=== PATIENT | female | born 1960 | race Hispanic/Latino ===

== ENCOUNTER 2017-10-26 11:39 | Outpatient (CLI) | payer SELFPAY ==
--- NOTE | 2017-10-27 16:02 | MMO ---
BILATERAL MAMMOGRAMS: 10/26/17 HISTORY: Screening mammography. COMPARISON: Multiple exams back to 09/01/12. FINDINGS: Heterogeneously dense fibroglandular tissue and benign appearing calcification are again demonstrated . No dominant mass or suspicious calcifications. The study is evaluated with the assistance of comput er aided detection. IMPRESSION: BI-RADS 1: Negative Routine annual screening mammography (for women over age 40) POS: JUAN MANUEL
== END 2017-10-26 11:40 | disposition home or self-care (01) ==
LOC: SCSMAMMO 11:39
PROVIDERS: ATTEND Nurse Practitioner Family
DX: Z12.31 Encounter for screening mammogram for malignant neoplasm of breast (principal)
CPT/HCPCS: 77067

== ENCOUNTER 2023-02-26 11:17 | Inpatient (IN) | payer OTHER ==
[~2023-02-26 11:17] MED LIST: Iopamidol-370 76% 500 ML MDV (1 ML CHARGE) ONE
[2023-02-26] MEDS ORDERED: fentaNYL 50 mcg/mL 1 mL Vial ONE ×6 (11:30→16:55)
[2023-02-26] MEDS ORDERED: Ondansetron PF 4 MG/2 ML Vial ONE ×2 (11:30→14:00)
[2023-02-26 11:33] LABS: #Eosinphils 0.2 thou/uL (0.0-0.7); #Monocytes 0.5 thou/uL (0.11-0.59); #Neutrophils 9.5 thou/uL (1.40-6.50); %Basophils 0.1 % (0.0-1.0); %Eosinophils 1.1 % (0.0-10.0); %Lymphocytes 26.5 % (21.0-51.0); %Monocytes 3.4 % (0.0-10.0); %Neutrophils 68.3 % (42.0-75.0); Hematocrit 31.8 % (36.0-47.0); Hemoglobin 9.9 g/dL (12.0-16.0); Mean Corpuscular HGB CONC 31.1 g/dL (32.0-36.0); Mean Corpuscular Hemoglobin 28.3 pg (27.0-31.0); Mean Corpuscular Volume 90.9 fl (78.0-98.0); Mean Platelet Volume 12.1 fL (7.4-10.4); Platelet Count 160 10x3/uL (130-400); RBC Distribution Width 14.6 % (11.5-14.5); White Blood Cell (WBC) Count 13.9 10x3/uL (4.8-10.8)
[2023-02-26] MEDS ORDERED: [UNRECOGNIZED DRUG - OTHER] IV SCH (11:45)
[2023-02-26] MEDS ORDERED: HUMAN PROTHROMBIN COMPLX IV SCH (11:45)
[2023-02-26] MEDS ORDERED: HUM PROTHROMBIN CPLX IV SCH (11:45)
[2023-02-26] MEDS ORDERED: HumaLOG 300 UNITS/3 ML VIAL SC PRN (11:46)
[2023-02-26] MEDS ORDERED: Dextrose 5% in Water 1,000 ML IV PRN (11:46)
[2023-02-26] MEDS ORDERED: TETANUS, DIPHTHERIA TOX,ADULT (TDVAX) 0.5 ML VIAL IM ONE (11:46)
[2023-02-26] MEDS ORDERED: Ipratropium/Albuterol 3 ML NEB NEB PRN (11:46)
[2023-02-26] MEDS ORDERED: Dextrose 50% Abboject 50 ML SYRINGE SLOW IVP PRN (11:46)
[2023-02-26] MEDS ORDERED: Glucagon 1 MG/ML KIT IM PRN (11:46)
[2023-02-26 11:51] LABS: ALT (SGPT) 16 U/L (8-55); AST (SGOT) 28 U/L (5-34); Alkaline Phosphatase 68 U/L (40-110); Anion Gap 16 mmol/L (10-20); BUN (Urea Nitrogen) 16 mg/dL (9.8-20.1); Bilirubin, Total 0.5 mg/dL (0.2-1.2); Calc. Creatinine Clearance 0 mL/min (70-130); Calcium 9.2 mg/dL (7.8-10.44); Carbon Dioxide 20 mmol/L (23-31); Chloride 104 mmol/L (98-107); Estimated GFR 79; Globulin 3.4 g/dL (2.4-3.5); Glucose 247 mg/dL (80-115); Lipase 45 U/L (8-78); Potassium 4.1 mmol/L (3.5-5.1); Protein, Total 7.4 g/dL (5.8-8.1); Sodium 136 mmol/L (136-145)
[2023-02-26 11:56] LABS: PTT 30.3 sec (22.9-36.1); Prothrombin Time 23.9 sec (12.0-14.7)
[2023-02-26 12:00] LABS: Acetaminophen Less than 10 mcg/mL (10.0-30.0); Alcohol Less than 10.0 mg/dL (Less than 10); Salicylate Less than 8.0 mg/dL (15.0-30.0)
[2023-02-26] MEDS ORDERED: Acetaminophen 500 MG TAB PO SCH (12:15)
[2023-02-26 13:06] LABS: Troponin I Less than 0.010 ng/mL (< 0.028)
[2023-02-26] MEDS ORDERED: fentaNYL PF 100 MCG/2 ML SYRINGE ONE (13:41)
[2023-02-26] MEDS ORDERED: CEFAZOLIN 2 GM in Sodium Chloride 0.9% 100 ML IVPB SCH (13:45)
[2023-02-26] MEDS ORDERED: Lidocaine 1% PF 5 ML VIAL ONE (14:00)
[2023-02-26] MEDS ORDERED: diphenhydrAMINE 50 MG/ML VIAL ONE (14:00)
[2023-02-26] MEDS ORDERED: Rocuronium Bromide 10 MG/ML (10ML VIAL) ONE (14:00)
[2023-02-26] MEDS ORDERED: Glycopyrrolate 0.2 MG/ML 5 ML SYRINGE ONE (14:00)
[2023-02-26] MEDS ORDERED: NEOSTIGMINE 3 MG/3 ML SYR 3 MG/3 ML SYRINGE ONE (14:00)
[2023-02-26] MEDS ORDERED: Succinylcholine 200 MG/10 ml SYRINGE FS ONE (14:00)
[2023-02-26] MEDS ORDERED: PROPOFOL 200 MG/20 ML VIAL ONE (14:00)
[2023-02-26 14:07] LABS: Bacteria/HPF None Seen HPF (None Seen); Bilirubin Negative (Negative); Blood, Urine Negative (Negative); CAUTI Indications for Culture Dysuria,urgency,freq; Clarity Clear (Clear); Glucose, Urine (Dipstick) Normal (Negative); Ketone, Urine Negative (Negative); Leukocyte Negative Leu/uL (Negative); Nitrite Negative (Negative); Protein, Urine (Dipstick) Negative (Neg-Trace); RBC/HPF 0-3 HPF (0-3); Specific Gravity, Urine 1.034 (1.002-1.036); Squamous Epithelial 0-3 HPF (0-3); Urobilinogen Normal mg/dL (Less than 2); WBC/HPF 0-3 HPF (0-3); pH, Urine 6.5 (5.0-9.0)
[2023-02-26 14:09] LABS: Urine Culture Reflex No No
[2023-02-26 14:15] LABS: Amphetamine Not Detected (NotDetected); Barbiturates Screen Not Detected (NotDetected); Benzodiazepine Screen Not Detected (NotDetected); Cocaine Metabolite Screen Not Detected (NotDetected); Methadone Not Detected (NotDetected); Methamphetamine Not Detected (NotDetected); Opiate Screen Not Detected (NotDetected); Oxycodone Screen Not Detected (NotDetected); Phencyclidine (PCP) Not Detected (NotDetected); THC/Cannabinoid Screen Not Detected (NotDetected); Tricyclic Screen Not Detected (NotDetected)
[2023-02-26] MEDS ORDERED: Ketorolac Tromethamine 30 MG/ML VIAL ONE (16:15)
[2023-02-26] MEDS ORDERED: Metoprolol Tartrate 5 MG/5 ML VIAL ONE (16:32)
[2023-02-26] MEDS: Morphine 2 MG/ML VIAL SLOW IVP PRN ×2 (17:57→18:39)
[2023-02-26] MEDS: Ondansetron PF 4 MG/2 ML Vial IVP PRN (18:00)
[2023-02-26] MEDS: Cyclobenzaprine 10 MG TAB PO PRN (18:02)
[2023-02-26] MEDS: Sodium Chloride 0.9% 1,000 ML IV SCH ×2 (18:07→20:51)
[2023-02-26] MEDS: Acetaminophen 500 MG TAB PO SCH (18:09)
[2023-02-26 19:59] VITALS: BMI 31.4
[2023-02-26] MEDS: Famotidine/PF 20 mg/2ml Vial SLOW IVP SCH (20:35)
[2023-02-26] MEDS: Morphine 4 MG/ML VIAL SLOW IVP PRN (20:35)
[2023-02-26] MEDS: Pregabalin 50 MG CAP PO SCH (21:38)
[2023-02-26] MEDS: CEFAZOLIN 2 GM in Sodium Chloride 0.9% 100 ML IVPB SCH (21:40)
[2023-02-26 21:56] LABS: #Monocytes 0.4 thou/uL (0.11-0.59); #Neutrophils 5.5 thou/uL (1.40-6.50); %Basophils 0.2 % (0.0-1.0); %Lymphocytes 9.7 % (21.0-51.0); %Monocytes 5.9 % (0.0-10.0); %Neutrophils 83.9 % (42.0-75.0); Hemoglobin 8.3 g/dL (12.0-16.0); Mean Corpuscular HGB CONC 31.9 g/dL (32.0-36.0); Mean Corpuscular Hemoglobin 28.9 pg (27.0-31.0); Mean Corpuscular Volume 90.6 fl (78.0-98.0); Mean Platelet Volume 12.5 fL (7.4-10.4); RBC Distribution Width 14.5 % (11.5-14.5); Red Blood Cell (RBC) Count 2.87 mill/uL (4.20-5.40); White Blood Cell (WBC) Count 6.6 10x3/uL (4.8-10.8)
[2023-02-26 21:59] LABS: Platelet Count 103 10x3/uL (130-400)
[2023-02-26 22:11] LABS: Lactic Acid 2.1 mmol/L (0.5-2.2)
[2023-02-27] MEDS: Morphine 2 MG/ML VIAL SLOW IVP PRN ×2 (00:02→21:16)
[2023-02-27] MEDS: Acetaminophen 500 MG TAB PO SCH ×5 (00:03→23:43)
[2023-02-27] MEDS: Morphine 4 MG/ML VIAL SLOW IVP PRN ×2 (03:18→07:18)
[2023-02-27] MEDS: Sodium Chloride 0.9% 1,000 ML IV SCH (03:19)
[2023-02-27 07:04] LABS: #Eosinphils 0.2 thou/uL (0.0-0.7); #Monocytes 0.4 thou/uL (0.11-0.59); #Neutrophils 3.5 thou/uL (1.40-6.50); %Basophils 0.2 % (0.0-1.0); %Eosinophils 2.8 % (0.0-10.0); %Lymphocytes 22.3 % (21.0-51.0); %Monocytes 7.9 % (0.0-10.0); %Neutrophils 66.6 % (42.0-75.0); Hematocrit 23.1 % (36.0-47.0); Hemoglobin 7.5 g/dL (12.0-16.0); Mean Corpuscular HGB CONC 32.5 g/dL (32.0-36.0); Mean Corpuscular Hemoglobin 29.2 pg (27.0-31.0); Mean Corpuscular Volume 89.9 fl (78.0-98.0); Mean Platelet Volume 12.7 fL (7.4-10.4); RBC Distribution Width 14.9 % (11.5-14.5); Red Blood Cell (RBC) Count 2.57 mill/uL (4.20-5.40); White Blood Cell (WBC) Count 5.3 10x3/uL (4.8-10.8)
[2023-02-27] MEDS: CEFAZOLIN 2 GM in Sodium Chloride 0.9% 100 ML IVPB SCH ×3 (07:18→21:17)
[2023-02-27 07:28] LABS: Platelet Count 85 10x3/uL (130-400)
[2023-02-27 07:30] LABS: Anion Gap 10 mmol/L (10-20); BUN (Urea Nitrogen) 15 mg/dL (9.8-20.1); Calc. Creatinine Clearance 106 mL/min (70-130); Calcium 7.8 mg/dL (7.8-10.44); Carbon Dioxide 22 mmol/L (23-31); Chloride 109 mmol/L (98-107); Estimated GFR 101; Glucose 115 mg/dL (80-115); Potassium 3.8 mmol/L (3.5-5.1); Sodium 137 mmol/L (136-145)
[2023-02-27] MEDS ORDERED: Lidocaine 1% (PF) 30 ML VIAL ONE (07:31)
[2023-02-27] MEDS: Ondansetron PF 4 MG/2 ML Vial IVP PRN (08:00)
[2023-02-27] MEDS ORDERED: traMADol HCl 50 MG TAB PO PRN (08:23)
[2023-02-27 08:27] LABS: CellaVision Operator ID lab.dlt; Hypochromia SLIGHT = 6-15 cells HPF (0-5); Large Platelets 7.9 % (0-5); Platelet Adequacy Comment Platelets Decreased; Polychromasia SLIGHT = 2-3 cells HPF (0-2)
[2023-02-27] MEDS ORDERED: Lidocaine 1% (PF) 30 ML VIAL SC SCH (09:15)
[2023-02-27] MEDS ORDERED: Morphine 4 MG/ML VIAL SLOW IVP SCH (09:15)
[2023-02-27] MEDS: Ascorbic Acid 500 mg Chewable Tablet PO SCH ×2 (10:03→20:25)
[2023-02-27] MEDS: Polyethylene Glycol 3350 17 GM Packet PO SCH (10:03)
[2023-02-27] MEDS: Senokot S 8.6-50 MG TAB PO SCH ×2 (10:03→20:25)
[2023-02-27] MEDS: Famotidine/PF 20 mg/2ml Vial SLOW IVP SCH ×2 (10:03→20:25)
[2023-02-27] MEDS: Pregabalin 50 MG CAP PO SCH ×2 (10:16→20:25)
[2023-02-27] MEDS: Cyclobenzaprine 10 MG TAB PO PRN ×3 (12:47→21:17)
[2023-02-27] MEDS: traMADol HCl 50 MG TAB PO SCH ×3 (12:51→23:44)
[2023-02-27] MEDS: Ferrous Sulfate 325 MG TAB PO SCH (17:57)
[2023-02-28 03:59] LABS: #Eosinphils 0.5 thou/uL (0.0-0.7); #Monocytes 0.5 thou/uL (0.11-0.59); #Neutrophils 4.2 thou/uL (1.40-6.50); %Basophils 0.2 % (0.0-1.0); %Eosinophils 7.3 % (0.0-10.0); %Lymphocytes 15.1 % (21.0-51.0); %Neutrophils 68.9 % (42.0-75.0); Hematocrit 23.8 % (36.0-47.0); Hemoglobin 7.6 g/dL (12.0-16.0); Mean Corpuscular HGB CONC 31.9 g/dL (32.0-36.0); Mean Corpuscular Hemoglobin 28.6 pg (27.0-31.0); Mean Corpuscular Volume 89.5 fl (78.0-98.0); Mean Platelet Volume 12.9 fL (7.4-10.4); RBC Distribution Width 14.8 % (11.5-14.5); Red Blood Cell (RBC) Count 2.66 mill/uL (4.20-5.40); White Blood Cell (WBC) Count 6.2 10x3/uL (4.8-10.8)
[2023-02-28 04:01] LABS: Platelet Count 76 10x3/uL (130-400)
[2023-02-28] MEDS: Acetaminophen 500 MG TAB PO SCH ×4 (05:19→23:31)
[2023-02-28] MEDS: CEFAZOLIN 2 GM in Sodium Chloride 0.9% 100 ML IVPB SCH ×3 (05:19→21:04)
[2023-02-28] MEDS: traMADol HCl 50 MG TAB PO SCH ×4 (05:20→23:31)
[2023-02-28] MEDS: Morphine 2 MG/ML VIAL SLOW IVP PRN (07:30)
[2023-02-28] MEDS: Cyclobenzaprine 10 MG TAB PO PRN (09:53)
[2023-02-28] MEDS: Senokot S 8.6-50 MG TAB PO SCH ×2 (09:53→21:04)
[2023-02-28] MEDS: Polyethylene Glycol 3350 17 GM Packet PO SCH (09:54)
[2023-02-28] MEDS: Metoprolol Tartrate 25 MG TAB PO SCH ×3 (09:54→22:01)
[2023-02-28] MEDS: Famotidine 20 MG TAB PO SCH ×2 (09:54→21:04)
[2023-02-28] MEDS: Ferrous Sulfate 325 MG TAB PO SCH ×2 (09:54→17:45)
[2023-02-28] MEDS: Ascorbic Acid 500 mg Chewable Tablet PO SCH ×2 (09:54→17:55)
[2023-02-28] MEDS: Pregabalin 50 MG CAP PO SCH ×2 (09:56→21:04)
[2023-02-28] MEDS ORDERED: Morphine 2 MG/ML VIAL SLOW IVP PRN (10:45)
[2023-02-28] MEDS: Ketorolac Tromethamine 30 MG/ML VIAL IVP SCH ×3 (11:09→22:58)
[2023-02-28] MEDS ORDERED: WARFARIN IVPB PRN (12:15)
[2023-02-28] MEDS ORDERED: Warfarin Sodium 5 MG TAB PO SCH (17:00)
[2023-02-28] MEDS: Atorvastatin Calcium 10 MG TAB PO SCH (21:04)
[2023-03-01] MEDS: Ketorolac Tromethamine 30 MG/ML VIAL IVP SCH ×2 (04:18→10:04)
[2023-03-01] MEDS: traMADol HCl 50 MG TAB PO SCH ×4 (06:11→23:50)
[2023-03-01] MEDS: Acetaminophen 500 MG TAB PO SCH ×4 (06:11→23:50)
[2023-03-01 08:30] LABS: #Eosinphils 0.3 thou/uL (0.0-0.7); #Monocytes 0.3 thou/uL (0.11-0.59); #Neutrophils 2.6 thou/uL (1.40-6.50); %Basophils 0.3 % (0.0-1.0); %Eosinophils 6.9 % (0.0-10.0); %Lymphocytes 19.6 % (21.0-51.0); %Monocytes 7.4 % (0.0-10.0); %Neutrophils 65.5 % (42.0-75.0); Hematocrit 19.5 % (36.0-47.0); Hemoglobin 6.1 g/dL (12.0-16.0); Mean Corpuscular HGB CONC 31.3 g/dL (32.0-36.0); Mean Corpuscular Hemoglobin 28.6 pg (27.0-31.0); Mean Corpuscular Volume 91.5 fl (78.0-98.0); Mean Platelet Volume 11.2 fL (7.4-10.4); Platelet Count 96 10x3/uL (130-400); RBC Distribution Width 14.6 % (11.5-14.5); Red Blood Cell (RBC) Count 2.13 mill/uL (4.20-5.40); White Blood Cell (WBC) Count 3.9 10x3/uL (4.8-10.8)
[2023-03-01] MEDS: Ferrous Sulfate 325 MG TAB PO SCH ×2 (08:43→17:34)
[2023-03-01] MEDS: Ascorbic Acid 500 mg Chewable Tablet PO SCH ×2 (08:43→17:35)
[2023-03-01] MEDS: Senokot S 8.6-50 MG TAB PO SCH ×2 (08:44→20:42)
[2023-03-01] MEDS: Polyethylene Glycol 3350 17 GM Packet PO SCH (08:44)
[2023-03-01] MEDS: Pregabalin 50 MG CAP PO SCH ×2 (08:44→20:42)
[2023-03-01] MEDS: Famotidine 20 MG TAB PO SCH ×2 (08:44→20:42)
[2023-03-01] MEDS: Metoprolol Tartrate 25 MG TAB PO SCH ×2 (08:44→20:42)
[2023-03-01 08:48] LABS: INR-International Normal Ratio 2.2; Prothrombin Time 25.3 sec (12.0-14.7)
[2023-03-01] MEDS ORDERED: Warfarin Sodium 5 MG TAB PO SCH (15:00)
[2023-03-01 15:01] LABS: #Eosinphils 0.3 thou/uL (0.0-0.7); #Monocytes 0.2 thou/uL (0.11-0.59); #Neutrophils 2.5 thou/uL (1.40-6.50); %Basophils 0.3 % (0.0-1.0); %Eosinophils 6.7 % (0.0-10.0); %Lymphocytes 19.4 % (21.0-51.0); %Monocytes 6.5 % (0.0-10.0); %Neutrophils 66.8 % (42.0-75.0); Hematocrit 21.6 % (36.0-47.0); Hemoglobin 6.9 g/dL (12.0-16.0); Mean Corpuscular HGB CONC 31.9 g/dL (32.0-36.0); Mean Corpuscular Hemoglobin 28.4 pg (27.0-31.0); Mean Corpuscular Volume 88.9 fl (78.0-98.0); Platelet Count 99 10x3/uL (130-400); RBC Distribution Width 15.7 % (11.5-14.5); Red Blood Cell (RBC) Count 2.43 mill/uL (4.20-5.40); White Blood Cell (WBC) Count 3.7 10x3/uL (4.8-10.8)
[2023-03-01] MEDS: Atorvastatin Calcium 10 MG TAB PO SCH (20:42)
[2023-03-01] MEDS: Cyclobenzaprine 10 MG TAB PO PRN (20:42)
[2023-03-02] MEDS: traMADol HCl 50 MG TAB PO SCH ×4 (05:50→23:47)
[2023-03-02] MEDS: Acetaminophen 500 MG TAB PO SCH ×4 (05:50→23:47)
[2023-03-02 07:11] LABS: #Eosinphils 0.3 thou/uL (0.0-0.7); #Monocytes 0.3 thou/uL (0.11-0.59); #Neutrophils 2.6 thou/uL (1.40-6.50); %Basophils 0.3 % (0.0-1.0); %Eosinophils 6.7 % (0.0-10.0); %Lymphocytes 17.5 % (21.0-51.0); %Monocytes 7.7 % (0.0-10.0); %Neutrophils 67.5 % (42.0-75.0); Hematocrit 25.7 % (36.0-47.0); Hemoglobin 8.4 g/dL (12.0-16.0); Mean Corpuscular HGB CONC 32.7 g/dL (32.0-36.0); Mean Corpuscular Hemoglobin 28.8 pg (27.0-31.0); Mean Platelet Volume 11.3 fL (7.4-10.4); Platelet Count 108 10x3/uL (130-400); Red Blood Cell (RBC) Count 2.92 mill/uL (4.20-5.40); White Blood Cell (WBC) Count 3.9 10x3/uL (4.8-10.8)
[2023-03-02 07:21] LABS: Prothrombin Time 23.9 sec (12.0-14.7)
[2023-03-02] MEDS: Ferrous Sulfate 325 MG TAB PO SCH ×2 (09:32→18:36)
[2023-03-02] MEDS: Senokot S 8.6-50 MG TAB PO SCH ×2 (09:32→21:33)
[2023-03-02] MEDS: Metoprolol Tartrate 25 MG TAB PO SCH ×2 (09:32→21:33)
[2023-03-02] MEDS: Ascorbic Acid 500 mg Chewable Tablet PO SCH ×2 (09:33→18:36)
[2023-03-02] MEDS: Famotidine 20 MG TAB PO SCH ×2 (09:33→21:33)
[2023-03-02] MEDS: Polyethylene Glycol 3350 17 GM Packet PO SCH (09:34)
[2023-03-02] MEDS: Aspirin 325 mg Enteric Coated Tablet PO SCH (09:34)
[2023-03-02] MEDS: Pregabalin 50 MG CAP PO SCH ×2 (09:34→21:33)
[2023-03-02] MEDS: Warfarin Sodium 5 MG TAB PO SCH (18:37)
[2023-03-02] MEDS: Cyclobenzaprine 10 MG TAB PO PRN (21:33)
[2023-03-02] MEDS: Atorvastatin Calcium 10 MG TAB PO SCH (21:33)
[2023-03-03] MEDS: Acetaminophen 500 MG TAB PO SCH (05:29)
[2023-03-03] MEDS: traMADol HCl 50 MG TAB PO SCH ×3 (05:29→17:52)
[2023-03-03 07:13] LABS: #Eosinphils 0.3 thou/uL (0.0-0.7); #Monocytes 0.3 thou/uL (0.11-0.59); #Neutrophils 2.6 thou/uL (1.40-6.50); %Basophils 0.3 % (0.0-1.0); %Eosinophils 6.3 % (0.0-10.0); %Lymphocytes 19.5 % (21.0-51.0); %Monocytes 8.4 % (0.0-10.0); Hematocrit 26.2 % (36.0-47.0); Hemoglobin 8.6 g/dL (12.0-16.0); Mean Corpuscular HGB CONC 32.8 g/dL (32.0-36.0); Mean Corpuscular Hemoglobin 29.2 pg (27.0-31.0); Mean Corpuscular Volume 88.8 fl (78.0-98.0); Mean Platelet Volume 11.5 fL (7.4-10.4); Platelet Count 125 10x3/uL (130-400); Red Blood Cell (RBC) Count 2.95 mill/uL (4.20-5.40)
[2023-03-03 07:56] LABS: INR-International Normal Ratio 1.9; Prothrombin Time 22.6 sec (12.0-14.7)
[2023-03-03] MEDS: Metoprolol Tartrate 25 MG TAB PO SCH ×2 (07:58→21:28)
[2023-03-03] MEDS: Famotidine 20 MG TAB PO SCH ×2 (07:58→21:28)
[2023-03-03] MEDS: Aspirin 325 mg Enteric Coated Tablet PO SCH (07:58)
[2023-03-03] MEDS: Pregabalin 50 MG CAP PO SCH ×2 (07:58→21:26)
[2023-03-03] MEDS: Ascorbic Acid 500 mg Chewable Tablet PO SCH ×2 (07:59→17:51)
[2023-03-03] MEDS: Polyethylene Glycol 3350 17 GM Packet PO SCH (07:59)
[2023-03-03] MEDS: Senokot S 8.6-50 MG TAB PO SCH ×2 (07:59→21:28)
[2023-03-03] MEDS: Ferrous Sulfate 325 MG TAB PO SCH ×2 (07:59→17:51)
[2023-03-03] MEDS: Acetaminophen/Codeine 30-300mg Tablet PO SCH ×3 (11:33→21:27)
[2023-03-03] MEDS: Acetaminophen 325 MG TAB PO SCH ×2 (11:33→17:52)
[2023-03-03] MEDS: Warfarin Sodium 5 MG TAB PO SCH (17:51)
[2023-03-03] MEDS: Atorvastatin Calcium 10 MG TAB PO SCH (21:27)
[2023-03-04] MEDS: Acetaminophen 325 MG TAB PO SCH ×4 (00:06→18:32)
[2023-03-04] MEDS: traMADol HCl 50 MG TAB PO SCH ×4 (00:07→18:31)
[2023-03-04] MEDS: Acetaminophen/Codeine 30-300mg Tablet PO SCH ×4 (04:12→20:17)
[2023-03-04 06:18] LABS: #Eosinphils 0.2 thou/uL (0.0-0.7); #Monocytes 0.4 thou/uL (0.11-0.59); #Neutrophils 1.9 thou/uL (1.40-6.50); %Basophils 0.3 % (0.0-1.0); %Eosinophils 6.8 % (0.0-10.0); %Lymphocytes 26.7 % (21.0-51.0); %Monocytes 11.6 % (0.0-10.0); %Neutrophils 53.7 % (42.0-75.0); Hematocrit 25.9 % (36.0-47.0); Hemoglobin 8.3 g/dL (12.0-16.0); Mean Corpuscular Hemoglobin 28.3 pg (27.0-31.0); Mean Corpuscular Volume 88.4 fl (78.0-98.0); Mean Platelet Volume 11.2 fL (7.4-10.4); Platelet Count 130 10x3/uL (130-400); RBC Distribution Width 16.3 % (11.5-14.5); Red Blood Cell (RBC) Count 2.93 mill/uL (4.20-5.40); White Blood Cell (WBC) Count 3.5 10x3/uL (4.8-10.8)
[2023-03-04 06:30] LABS: Prothrombin Time 23.8 sec (12.0-14.7)
[2023-03-04] MEDS: Pregabalin 50 MG CAP PO SCH ×2 (08:53→20:16)
[2023-03-04] MEDS: Aspirin 325 mg Enteric Coated Tablet PO SCH (08:53)
[2023-03-04] MEDS: Famotidine 20 MG TAB PO SCH ×2 (08:53→20:15)
[2023-03-04] MEDS: Ferrous Sulfate 325 MG TAB PO SCH ×2 (08:54→16:38)
[2023-03-04] MEDS: Metoprolol Tartrate 25 MG TAB PO SCH ×2 (08:54→20:15)
[2023-03-04] MEDS: Ascorbic Acid 500 mg Chewable Tablet PO SCH ×2 (08:54→16:37)
[2023-03-04] MEDS: Senokot S 8.6-50 MG TAB PO SCH ×2 (08:54→20:17)
[2023-03-04] MEDS: Polyethylene Glycol 3350 17 GM Packet PO SCH (08:58)
[2023-03-04] MEDS: Warfarin Sodium 5 MG TAB PO SCH (16:36)
[2023-03-04] MEDS: Atorvastatin Calcium 10 MG TAB PO SCH (20:17)
[2023-03-05] MEDS: Acetaminophen 325 MG TAB PO SCH ×5 (00:14→23:32)
[2023-03-05] MEDS: traMADol HCl 50 MG TAB PO SCH ×5 (00:15→23:32)
[2023-03-05] MEDS: Acetaminophen/Codeine 30-300mg Tablet PO SCH ×4 (04:02→20:53)
[2023-03-05 06:18] LABS: #Eosinphils 0.2 thou/uL (0.0-0.7); #Monocytes 0.4 thou/uL (0.11-0.59); #Neutrophils 2.2 thou/uL (1.40-6.50); %Basophils 0.3 % (0.0-1.0); %Lymphocytes 22.3 % (21.0-51.0); %Monocytes 10.6 % (0.0-10.0); %Neutrophils 58.9 % (42.0-75.0); Hematocrit 27.2 % (36.0-47.0); Hemoglobin 8.6 g/dL (12.0-16.0); Mean Corpuscular HGB CONC 31.6 g/dL (32.0-36.0); Mean Corpuscular Hemoglobin 28.3 pg (27.0-31.0); Mean Corpuscular Volume 89.5 fl (78.0-98.0); Mean Platelet Volume 10.8 fL (7.4-10.4); Platelet Count 162 10x3/uL (130-400); RBC Distribution Width 16.8 % (11.5-14.5); Red Blood Cell (RBC) Count 3.04 mill/uL (4.20-5.40); White Blood Cell (WBC) Count 3.7 10x3/uL (4.8-10.8)
[2023-03-05 06:31] LABS: INR-International Normal Ratio 2.2; PTT 51.9 sec (22.9-36.1); Prothrombin Time 25.5 sec (12.0-14.7)
[2023-03-05] MEDS: Senokot S 8.6-50 MG TAB PO SCH ×2 (08:45→20:53)
[2023-03-05] MEDS: Ascorbic Acid 500 mg Chewable Tablet PO SCH ×2 (08:45→17:01)
[2023-03-05] MEDS: Famotidine 20 MG TAB PO SCH ×2 (08:46→20:52)
[2023-03-05] MEDS: Pregabalin 50 MG CAP PO SCH ×2 (08:46→20:53)
[2023-03-05] MEDS: Polyethylene Glycol 3350 17 GM Packet PO SCH (08:47)
[2023-03-05] MEDS: Ferrous Sulfate 325 MG TAB PO SCH ×2 (08:47→17:01)
[2023-03-05] MEDS: Metoprolol Tartrate 25 MG TAB PO SCH ×2 (08:47→20:53)
[2023-03-05] MEDS: Warfarin Sodium 5 MG TAB PO SCH (17:01)
[2023-03-05] MEDS: Atorvastatin Calcium 10 MG TAB PO SCH (20:52)
[2023-03-06] MEDS: Acetaminophen/Codeine 30-300mg Tablet PO SCH ×2 (04:32→09:19)
[2023-03-06] MEDS: traMADol HCl 50 MG TAB PO SCH ×2 (05:38→12:16)
[2023-03-06] MEDS: Acetaminophen 325 MG TAB PO SCH ×2 (05:38→12:16)
[2023-03-06 08:32] VITALS: TEMP 98
[2023-03-06] MEDS: Senokot S 8.6-50 MG TAB PO SCH (09:16)
[2023-03-06] MEDS: Pregabalin 50 MG CAP PO SCH (09:17)
[2023-03-06] MEDS: Ferrous Sulfate 325 MG TAB PO SCH (09:17)
[2023-03-06] MEDS: Famotidine 20 MG TAB PO SCH (09:19)
[2023-03-06] MEDS: Metoprolol Tartrate 25 MG TAB PO SCH (09:19)
[2023-03-06] MEDS: Ascorbic Acid 500 mg Chewable Tablet PO SCH (09:19)
[2023-03-06] MEDS: Polyethylene Glycol 3350 17 GM Packet PO SCH (09:20)
[2023-03-06 13:48] VITALS: BP 115/69
== END 2023-03-06 14:40 | disposition home or self-care (01) | DRG 958 ==
LOC: ERS 11:17 → SDC 13:22 → CCU 16:21 → SURG A 03-01 16:35
PROVIDERS: ADMIT Surgery; ATTEND Surgery
PROC: 0QSH06Z Reposition Left Tibia with Intramedullary Internal Fixation Device, Open Approach (ICD-10-PCS; principal; 2023-02-26)
PROC: 0QSK06Z Reposition Left Fibula with Intramedullary Internal Fixation Device, Open Approach (ICD-10-PCS; 2023-02-26)
PROC: 30233N1 Transfusion of Nonautologous Red Blood Cells into Peripheral Vein, Percutaneous Approach (ICD-10-PCS; 2023-02-26)
PROC: 30283B1 Transfusion of Nonautologous 4-Factor Prothrombin Complex Concentrate into Vein, Percutaneous Approach (ICD-10-PCS; 2023-02-26)
PROC: 0W9B30Z Drainage of Left Pleural Cavity with Drainage Device, Percutaneous Approach (ICD-10-PCS; 2023-02-27)
DX: S82.302B Unspecified fracture of lower end of left tibia, initial encounter for open fracture type I or II (principal); S27.2XXA Traumatic hemopneumothorax, initial encounter; S82.832B Other fracture of upper and lower end of left fibula, initial encounter for open fracture type I or II; D62 Acute posthemorrhagic anemia; D68.8 Other specified coagulation defects; S22.029A Unspecified fracture of second thoracic vertebra, initial encounter for closed fracture; S22.039A Unspecified fracture of third thoracic vertebra, initial encounter for closed fracture; S22.049A Unspecified fracture of fourth thoracic vertebra, initial encounter for closed fracture; S22.059A Unspecified fracture of T5-T6 vertebra, initial encounter for closed fracture; S27.321A Contusion of lung, unilateral, initial encounter; S22.42XA Multiple fractures of ribs, left side, initial encounter for closed fracture; I25.10 Atherosclerotic heart disease of native coronary artery without angina pectoris; R40.2411 Glasgow coma scale score 13-15, in the field [EMT or ambulance]; T45.515A Adverse effect of anticoagulants, initial encounter; S01.01XA Laceration without foreign body of scalp, initial encounter; M79.89 Other specified soft tissue disorders; V03.90XA Pedestrian on foot injured in collision with car, pick-up truck or van, unspecified whether traffic or nontraffic accident, initial encounter; Z79.01 Long term (current) use of anticoagulants; Z79.899 Other long term (current) drug therapy; Z90.49 Acquired absence of other specified parts of digestive tract
CPT/HCPCS: 27810; 36415; 36416; 36430; 51702; 70450; 71045; 71260; 72125; 72170; 74177; 80048; 80053; 80306; 80307; 81001; 82550; 83605; 83690; 84484; 85025; 85610; 85730; 86850; 86900; 86901; 90471; 93005; 96365; 96374; 96375; 99292; C1713; C1769; G0390; J1200; J1815; J1885; J2270; J2272; J2405; J2704; J3010; J3490; J7050; J7168; P9016; Q9967; S0028

== ENCOUNTER 2023-03-09 10:05 | Emergency (ER) | payer OTHER | END 2023-03-09 10:30 | disposition home or self-care (01) | LOC: ERS 10:05 | DX: S01.01XD Laceration without foreign body of scalp, subsequent encounter (principal); E11.9 Type 2 diabetes mellitus without complications; E78.00 Pure hypercholesterolemia, unspecified; Z79.84 Long term (current) use of oral hypoglycemic drugs; Z79.899 Other long term (current) drug therapy; V03.10XD Pedestrian on foot injured in collision with car, pick-up truck or van in traffic accident, subsequent encounter ==